=== PATIENT | male | born 1945 | race Caucasian/White ===

== ENCOUNTER 2018-01-22 11:56 | Emergency (ER) | payer OTHER ==
[~2018-01-22] VITALS: Ht 172.7 cm; Wt 74.8 kg
[2018-01-22 12:05] VITALS: BP_SYST 132; BP_SYST 136
[2018-01-22 13:25] VITALS: BP_SYST 131
== END 2018-01-22 13:25 | disposition home or self-care (01) ==
LOC: SED 11:59
DX: J40 Bronchitis, not specified as acute or chronic (principal); J44.9 Chronic obstructive pulmonary disease, unspecified
CPT/HCPCS: 99283